=== PATIENT | female | born 1985 | race Caucasian/White ===

== ENCOUNTER 2023-04-26 11:21 | Emergency (ER) | payer OTHER, SELFPAY ==
[2023-04-26 11:32] VITALS: BP 134/89; PULSE 77; RESP 20; TEMP 36.6; O2SAT 100; BMI 57.0
--- NOTE | 2023-04-26 12:59 | ED_ITS ---
HPI - Back Pain/Injury 2 General: Chief Complaint: Back Pain/Injury Stated Complaint: upper back pain Time Seen by Provider: 04/26/23 12:49 Source: patient Mode of arrival: ambulatory Limitations: no limitations History of Present Illness: Patient is a 38-year-old female presents to ED today with complaint of thoracic back pain that began yesterday. Patient states she felt like discomfort started gradually. She states the day before she was doing a lot of above the head reaching that is involved in her work. She states pain is reproducible with certain movements of her back and arms. No radiation into her chest or abdomen. She does not complain of feeling short of breath. No pain to her arms. MD elicited complaint: back pain Onset (ago): day(s) (yesterday) Timing: constant Severity: moderate Similar Symptoms Previously: No Quality: dull Location: thoracic spine Radiation: none Exacerbating factors: movement Relieving factors: none Associated symptoms: Reports no associated symptoms; Deny abdominal pain, difficulty walking, dysuria or syncope Treatments prior to arrival: NSAIDS Review of Systems 2 Card: Denies: chest pain, lightheadedness, syncope or pre-syncope Resp: Denies: dyspnea or pain on inspiration GI: Denies: abdominal pain : Denies: flank pain or dysuria Musc: Reports: back pain; Denies: neck pain, extremity pain, extremity swelling, joint pain or joint swelling Neuro: Denies: headache(s), numbness in extremities, weakness in extremities, sensory changes, difficulty walking or dizziness Physical Exam 2 Const: COMMON NORMALS: no acute distress, patient oriented x3, no limitations, alert and well nourished GENERAL APPEARANCE: cooperative NUTRITIONAL APPEARANCE: obese morbidly obese (BMI of 57.1) ORIENTATION/CONSCIOUSNESS: Yes awake, Yes oriented to person, Yes oriented to place and Yes oriented to time Neck/C-Spine: COMMON NORMALS: full ROM GENERAL: Yes normal visual inspection CERVICAL SPINE: No Cervical spine tenderness, No Paracervical muscle tenderness, No Trapezius muscle tenderness and No Lhermitte's sign positive Chest: COMMONS NORMALS: normal inspection of the chest and normal palpation of entire chest wall Resp: COMMON NORMALS: normal respiratory effort and clear to auscultation bilaterally AUSCULTATION: clear to auscultation bilaterally Cardio: COMMON NORMALS: regular rate and regular rhythm RATE: regular rate RHYTHM: regular rhythm GI: COMMON NORMALS: Normal to inspection, nondistended, normoactive bowel sounds present, Soft to palpation, non-tender and no masses PALPATION: Yes Soft to palpation : COMMON NORMALS: Yes no CVA tenderness BLADDER/KIDNEY EXAM: Yes no CVA tenderness Back/Pelvis: COMMON NORMALS: no CVA tenderness THORACIC SPINE/UPPER BACK: Y es normal to inspection, Yes thoracic ROM normal, Yes pain with ROM, Yes thoracic spinal tenderness, Yes paraspinal muscle tenderness and No paraspinal muscle spasm LUMBAR SPINE/LOWER BACK: Yes normal to inspection, Yes lumbar ROM normal, No pain with ROM, No lumbar spinal tenderness, No paraspinal muscle tenderness and No paraspinal muscle spasm PELVIS: Yes buttocks normal S ACROILIAC JOINTS: Yes SI joints normal SACRUM: no tenderness COCCYX: no tenderness BACK IMAGE (FEMALE): 1. TTP thoracic midline and R paraspinal musculature; palpation reproduces pain along with forward flexion of shoulders Extremity: GENERAL: Yes normal exam except as noted Neuro: COMMON NORMALS: patient oriented x3, moves all extremities, no focal motor deficits, no sensory deficits noted and gait normal S ENSORIUM/ORIENTATION: Yes alert, Yes oriented to person, Yes oriented to place and Yes oriented to time Skin: COMMON NORMALS: no rashes or lesions noted GENERAL SKIN EXAM: no rashes or lesions noted Course 2 Vital Signs: Vital signs: Vital Signs Temperature 97.8 F 04/26/23 11:32 Pulse Rate 77 04/26/23 11:32 Respiratory Rate 20 H 04/26/23 11:32 Blood Pressure 134/89 04/26/23 11:32 Pulse Oximetry 100 04/26/23 11:32 Oxygen Delivery Me thod Room Air 04/26/23 11:32 MDM - Back Pain/Injury Medical Decision Making Patient has been taking OTC naproxen at home. Recommend she continue this. She also states she has some leftover Robaxin she can take. Will place her on steroids. At this time pain is reproducible. I do not have any suspicion for acute etiology for her thoracic back pain such as AAA, dissection, discitis. Return precautions given. Differential Diagnosis Likely thoracic back pain Medical Records I reviewed the patient's medical records. No radiology studies performed this visit Discharge Plan Discharge Patient Disposition: Home Clinical Impression: Thoracic back pain Qualifiers: Chronicity: acute Back pain laterality: midline Qualified Code(s): M54.6 - Pain in thoracic spine Condition: Stable Prescriptions: New Medrol (Willie) 4 mg tablets,dose pack See Rx Instructions .ROUTE .COMPLEX Qty: 21 0RF Rx Instructions: orally per package directions Discharge Orders: Discharge ED (Routine); Ordered 04/26/23 Ordered By: Sabra De Coding Level of Care Code ED Human Geography Faculty Member for Mal Dumont
== END 2023-04-26 13:07 | disposition home or self-care (01) ==
PROVIDERS: Emergency Provider Physician Assistant
DX: M54.6 Pain in thoracic spine (principal)
CPT/HCPCS: 99283